=== PATIENT | male | born 1960 | race Caucasian/White ===

== ENCOUNTER 2016-11-26 17:34 | Emergency (ER) | payer OTHER ==
--- NOTE | 2016-11-26 18:07 | DIAGNOSTIC IMAGING REPORT ---
PROCEDURE: XR CHEST 1 VIEW INDICATION: LEFT SIDED CHEST PAIN SINCE YESTERDAY TECHNIQUE: Portable AP view 06:00 p.m. COMPARISON: None. FINDINGS: Lungs are clear. Heart and mediastinum are normal. Thorax is normal. IMPRESSION: 1. Negative chest.
--- NOTE | 2016-11-26 19:47 | ED NURSING NOTES ---
Clinical Report - Nurses [facility] [address] [place] [address] 11/26/2016 17:37 [id number] Triage time 17:39 Nov 26 2016. Acuity: LEVEL 2. Chief Complaint: CHEST PAIN and LEFT ARM PAIN and NECK PAIN ("feels like my shoulder is broken"). --17:45 Balaji Ewing R.N. 17:39 11/26/16. BP: 169/90. HR: 79. RR: 16. O2 saturation: 98% on room air. Temp: 98.6 F. Pain level now: 8/10. Additional comments: 8/10 pain when up and about; 5/10 when lying on stretcher. --17:45 Balaji Ewing R.N. Weight: 83.9 kg stated. Height/Length: 70 inches Per Patient. BMI: 26.5. --17:39 Balaji Ewing R.N. Medications None. --17:43 Balaji Ewing R.N. Allergies Bees. --17:44 Balaji Ewing R.N. History Arrived by private vehicle. Historian: patient. Accompanied by family. Onset. (3 days). Reports experiencing sweating episodes. He has had nausea and vomiting. 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 PAST MEDICAL HX: No history of diabetes mellitus. SOCIAL HX: Never smoker. Alcohol use; consumes beer occasionally and wine by the glass. No drug use. No infectious disease exposure. FALL RISK ASSESSMENT: Fall risk assessment completed. No fall risk identified. NUTRITIONAL RISK ASSESSMENT: The nutritional risk assessment revealed no deficiencies. FUNCTIONAL ASSESSMENT: Functional assessment: no impairments noted. LEARNING NEEDS ASSESSMENT: The learning needs assessment revealed no barriers. SKIN INTEGRITY ASSESSMENT: Skin integrity risk assessment completed. No skin integrity risk identified. --17:45 Balaji Ewing R.N. SURGERY HX: Hip prosthesis. Vasectomy. --18:04 Balaji Ewing R.N. Interventions ID band on patient. To treatment room. --17:45 Balaji Ewing R.N. PHYSICAL ASSESSMENT Ambulatory to room. GENERAL / NEURO / PSYCH: Alert. Oriented X 4. Appears in pain, anxious and in distress. RESPIRATORY: Mild respiratory distress. CVS: Pulses within normal limits. Capillary refill less than 2 seconds. EXTREMITIES: No lower extremity edema. SKIN: Skin is dry. Skin is diaphoretic. Skin is non-tender. --17:46 Balaji Ewign R.N. NURSING PROGRESS NOTES The plan of care for this patient has been created. Monitoring of patient in place. Patient gowned. Head of bed elevated. Reassurance given. Two patient identifiers checked. Side rails up x 2. Bed placed in lowest position. Patient ready for evaluation- chart flagged and ED physician notified. --17:46 Balaji Ewing R.N. 17:52 11/26/2016 Aspirin PO Tablets 325 mg given. Allergies verified and confirmed 5 rights. --17:57 Balaji Ewing R.N. 17:57 11/26/2016 Site #1 started via IV in the left antecubital space with an 20g angiocath, with aseptic technique and good blood return; one attempt. Blood drawn: rainbow set. Labeled in the presence of the patient and sent to the lab. Saline lock flushed with 10 mL saline. --17:57 Balaji Ewing R.N. 17:57 11/26/16. EKG time: (1743). EKG was performed by a tech and shown to the ED physician. --17:58 Kaycee Gallardo ( Pt given a urinal and asked to provide a sample. He is in no acute distress, son at bedside, watching TV, denies needs.). --18:23 Balaji Ewing R.N. 18:58 11/26/16. BP: 134/81. HR: 77. RR: 18. O2 saturation: 96%. Pain level now: 11/21. --18:58 Balaji Ewing R.N. 19:55 11/26/2016 Site #1 removed upon discharge. Catheter intact. Bandaid applied. --21:55 Katelynn Ryan. DISPOSITION / DISCHARGE 19:48 11/26/16. BP: 138/83. HR: 72. RR: 20. O2 saturation: 97% on room air. --19:48 Katelynn Ryan The goals identified in the patient's plan of care were met. FALL RISK ASSESSMENT: Fall risk assessment completed. No fall risk identified. --19:48 Katelynn Ryan Condition at departure: stable. No learning barriers present. Discharge instructions provided and reviewed with the patient. Patient verbalized understanding. Written instructions provided in Bulgarian. ( Follow up with Cardiology for next available appointment. Cardiology contact information provided. Return if symptoms worsen.). The patient was discharged by the physician. He was discharged home and accompanied by flat clothier. He left the Emergency Department ambulatory and via private vehicle. Patient driving. --21:54 Katelynn Ryan 19:51 11/26/16. Temp: 98.4 F (oral). Pain level now: 11/21. --21:54 Katelynn Ryan. Locked/Released at 11/26/2016 21:55 by Katelynn Ryan,
--- NOTE | 2016-11-26 19:47 | ED NURSING NOTES ---
Clinical Report - Nurses [facility] [address] [place] [address] 11/26/2016 17:37 [id number] Triage time 17:39 Nov 26 2016. Acuity: LEVEL 2. Chief Complaint: CHEST PAIN and LEFT ARM PAIN and NECK PAIN ("feels like my shoulder is broken"). --17:45 Balaji Ewing R.N. 17:39 11/26/16. BP: 169/90. HR: 79. RR: 16. O2 saturation: 98% on room air. Temp: 98.6 F. Pain level now: 8/10. Additional comments: 8/10 pain when up and about; 5/10 when lying on stretcher. --17:45 Balaji Ewing R.N. Weight: 83.9 kg stated. Height/Length: 70 inches Per Patient. BMI: 26.5. --17:39 Balaji Ewing R.N. Medications None. --17:43 Balaji Ewing R.N. Allergies Bees. --17:44 Balaji Ewing R.N. History Arrived by private vehicle. Historian: patient. Accompanied by family. Onset. (3 days). Reports experiencing sweating episodes. He has had nausea and vomiting. 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 PAST MEDICAL HX: No history of diabetes mellitus. SOCIAL HX: Never smoker. Alcohol use; consumes beer occasionally and wine by the glass. No drug use. No infectious disease exposure. FALL RISK ASSESSMENT: Fall risk assessment completed. No fall risk identified. NUTRITIONAL RISK ASSESSMENT: The nutritional risk assessment revealed no deficiencies. FUNCTIONAL ASSESSMENT: Functional assessment: no impairments noted. LEARNING NEEDS ASSESSMENT: The learning needs assessment revealed no barriers. SKIN INTEGRITY ASSESSMENT: Skin integrity risk assessment completed. No skin integrity risk identified. --17:45 Balaji Ewing R.N. SURGERY HX: Hip prosthesis. Vasectomy. --18:04 Balaji Ewing R.N. Interventions ID band on patient. To treatment room. --17:45 Balaji Ewing R.N. PHYSICAL ASSESSMENT Ambulatory to room. GENERAL / NEURO / PSYCH: Alert. Oriented X 4. Appears in pain, anxious and in distress. RESPIRATORY: Mild respiratory distress. CVS: Pulses within normal limits. Capillary refill less than 2 seconds. EXTREMITIES: No lower extremity edema. SKIN: Skin is dry. Skin is diaphoretic. Skin is non-tender. --17:46 Balaji Ewing R.N. NURSING PROGRESS NOTES The plan of care for this patient has been created. Monitoring of patient in place. Patient gowned. Head of bed elevated. Reassurance given. Two patient identifiers checked. Side rails up x 2. Bed placed in lowest position. Patient ready for evaluation- chart flagged and ED physician notified. --17:46 Balaji Ewing R.N. 17:52 11/26/2016 Aspirin PO Tablets 325 mg given. Allergies verified and confirmed 5 rights. --17:57 Balaji Ewing R.N. 17:57 11/26/2016 Site #1 started via IV in the left antecubital space with an 20g angiocath, with aseptic technique and good blood return; one attempt. Blood drawn: rainbow set. Labeled in the presence of the patient and sent to the lab. Saline lock flushed with 10 mL saline. --17:57 Balaji Ewing R.N. 17:57 11/26/16. EKG time: (1743). EKG was performed by a tech and shown to the ED physician. --17:58 Kaycee Gallardo ( Pt given a urinal and asked to provide a sample. He is in no acute distress, son at bedside, watching TV, denies needs.). --18:23 Balaji Ewing R.N. 18:58 11/26/16. BP: 134/81. HR: 77. RR: 18. O2 saturation: 96%. Pain level now: 11/21. --18:58 Balaji Ewing R.N. 19:55 11/26/2016 Site #1 removed upon discharge. Catheter intact. Bandaid applied. --21:55 Katelynn Ryan. DISPOSITION / DISCHARGE 19:48 11/26/16. BP: 138/83. HR: 72. RR: 20. O2 saturation: 97% on room air. --19:48 Katelynn Ryan The goals identified in the patient's plan of care were met. FALL RISK ASSESSMENT: Fall risk assessment completed. No fall risk identified. --19:48 Katelynn Ryan Condition at departure: stable. No learning barriers present. Discharge instructions provided and reviewed with the patient. Patient verbalized understanding. Written instructions provided in Afghan. ( Follow up with Cardiology for next available appointment. Cardiology contact information provided. Return if symptoms worsen.). The patient was discharged by the physician. He was discharged home and accompanied by automotive parts person. He left the Emergency Department ambulatory and via private vehicle. Patient driving. --21:54 Katelynn Ryan 19:51 11/26/16. Temp: 98.4 F (oral). Pain level now: 11/21. --21:54 Katelynn Ryan. Locked/Released at 11/26/2016 21:55 by Katelynn Ryan,
--- NOTE | 2016-11-26 19:47 | ED ORDER SUMMARY ---
..... Patient: BRETT LOBATO OrderSheet [facility] VisitID: [id number] [place] [address] 56y, M Registration Date/Time: 11/26/2016 ORDER SHEET Weight: 83.9 kg (stated) Allergies: Bees GENERAL ORDERS: EKG - ER Stat (17:43 11/26/2016 Eb Carrillo) (17:46 MCook R.N.) Personal Support Worker (Continuous) (17:48 11/26/2016 MCook R.N. per protocol) (17:48 MCook R.N.) Pulse oximeter (17:48 11/26/2016 MCook R.N. per protocol) (17:48 MCook R.N.) EKG - ER Stat (17:48 11/26/2016 MCook R.N. per protocol) (17:49 PAMELLAoerner) (Cancelled: Duplicate Order17:54 Eb Carrillo) Chest 1V Urgent (17:54 11/26/2016 Eb Carrillo) (Ack 17:59 Selina) (18:16 MCook R.N.) CBC w Diff Urgent (17:54 11/26/2016 Eb Carrillo) (17:55 MCook R.N.) CMP Urgent (17:54 11/26/2016 Eb Carrillo) (17:55 MCook R.N.) UA-Culture if indicated Urgent (17:54 11/26/2016 Eb Carrillo) (Ack 17:59 Selina) (19:19 HSoule) PT with INR Urgent (17:54 11/26/2016 Eb Carrillo) (17:55 MCook R.N.) Troponin-I Urgent (17:54 11/26/2016 Eb Carrillo) (17:55 MCook R.N.) D-Dimer Urgent (17:54 11/26/2016 Eb Carrillo) (17:55 MCook R.N.) Urine Drug Screen Urgent (18:22 11/26/2016 Eb Carrillo) (Ack 18:25 LNations ER Tech1) (19:19 HSoule) MEDICATION ORDERS: Aspirin PO 324 mg (NOW) (17:47 11/26/2016 MCook R.N. per protocol) (Cancelled: Duplicate Order17:56 MCook R.N.) Aspirin PO 325 mg (Do not crush or chew, NOW) (17:54 11/26/2016 Eb Carrillo) (17:57 MCook R.N.) IV FLUIDS: IV Saline Lock (17:48 11/26/2016 MCook R.N. per protocol) (17:57 MCook R.N.) ORDER SHEET NOTES: [Electronically signed by Katelynn Ryan (21:55 11/26/2016)] [Electronically signed by Aurelio June Dr. (10:47 11/30/2016)] [Electronically locked/signed by Katelynn Ryan (21:55 11/26/2016)]
--- NOTE | 2016-11-26 19:47 | ED ORDER SUMMARY ---
..... Patient: BRETT LOBATO OrderSheet [facility] VisitID: [id number] [place] [address] 56y, M Registration Date/Time: 11/26/2016 ORDER SHEET Weight: 83.9 kg (stated) Allergies: Bees GENERAL ORDERS: EKG - ER Stat (17:43 11/26/2016 Eb Carrillo) (17:46 MCook R.N.) Morning News Producer (Continuous) (17:48 11/26/2016 MCook R.N. per protocol) (17:48 MCook R.N.) Pulse oximeter (17:48 11/26/2016 MCook R.N. per protocol) (17:48 MCook R.N.) EKG - ER Stat (17:48 11/26/2016 MCook R.N. per protocol) (17:49 PAMELLAoerner) (Cancelled: Duplicate Order17:54 Eb Carrillo) Chest 1V Urgent (17:54 11/26/2016 Eb Carrillo) (Ack 17:59 Selina) (18:16 MCook R.N.) CBC w Diff Urgent (17:54 11/26/2016 Eb Carrillo) (17:55 MCook R.N.) CMP Urgent (17:54 11/26/2016 Eb Carrillo) (17:55 MCook R.N.) UA-Culture if indicated Urgent (17:54 11/26/2016 Eb Carrillo) (Ack 17:59 Selina) (19:19 HSoule) PT with INR Urgent (17:54 11/26/2016 Eb Carrillo) (17:55 MCook R.N.) Troponin-I Urgent (17:54 11/26/2016 Eb Carrillo) (17:55 MCook R.N.) D-Dimer Urgent (17:54 11/26/2016 Eb Carrillo) (17:55 MCook R.N.) Urine Drug Screen Urgent (18:22 11/26/2016 Eb Carrillo) (Ack 18:25 LNations ER Tech1) (19:19 HSoule) MEDICATION ORDERS: Aspirin PO 324 mg (NOW) (17:47 11/26/2016 MCook R.N. per protocol) (Cancelled: Duplicate Order17:56 MCook R.N.) Aspirin PO 325 mg (Do not crush or chew, NOW) (17:54 11/26/2016 Eb Carrillo) (17:57 MCook R.N.) IV FLUIDS: IV Saline Lock (17:48 11/26/2016 MCook R.N. per protocol) (17:57 MCook R.N.) ORDER SHEET NOTES: [Electronically signed by Katelynn Ryan (21:55 11/26/2016)] [Electronically signed by Aurelio June Dr. (10:47 11/30/2016)] [Electronically locked/signed by Katelynn Ryan (21:55 11/26/2016)]
--- NOTE | 2016-11-26 19:47 | ED CLINICAL REPORT ---
Clinical Report - Physicians/Mid Levels [facility] [address] [place] [address] 11/26/2016 17:37 Patient: BRETT LOBATO Arrived- By private vehicle. Historian- patient. HISTORY OF PRESENT ILLNESS Chief Complaint: CHEST PAIN. At its maximum, severity described as moderate. When seen in the E.D., severity described as moderate. Modifying factors- worsened by movement. (relieved by rest). This started 3 days ago and is still present and worsening. It was abrupt in onset and has been constant but is not gone now. The patient cannot recall the circumstances at the onset. It is described as sharp and it is described as located in the left chest area and left shoulder. No radiation. No nausea, vomiting, difficulty breathing or diaphoresis. No additional chest pain. (no recent trauma, surgeries, leg swelling, hemoptysis). Similar symptoms previously: None. REVIEW OF SYSTEMS No fever, chills, pedal edema or calf pain. All systems otherwise negative, except as recorded above. PAST HISTORY Denies the following risk factors for DVT/PE - history of DVT and pulmonary embolism, recent surgery, recent IA and congestive heart failure. Denies the following risk factors for DVT/PE - cancer, clotting disorder, estrogens, obesity and immobility. Denies the following risk factors for DVT/PE - advanced in age and vena cava filter. SOCIAL HISTORY Never smoker. No alcohol use or drug use. No recent travel. Is a local resident. FAMILY HISTORY No history of heart disease. No family history of premature onset heart disease. ADDITIONAL NOTES The nursing notes have been reviewed. PHYSICAL EXAM Vital Signs: 11/26/2016 17:39 BP: 169/90. HR: 79. RR: 16. O2 saturation: 98%. Temp: 98.6 F. Pain level now: 8/10. Oxygen saturation normal. Appearance: Alert. Oriented X3. No acute distress. Eyes: Pupils equal, round and reactive to light. Eyes normal inspection. ENT: Ears normal. Nose normal. Pharynx normal. Neck: Normal inspection. Neck supple. CVS: Normal heart rate and rhythm. Heart sounds normal. Pulses normal. (reproducible pain with palpation of the left anterior chest just above the 4th rib in the mix axillary line). Respiratory: No respiratory distress. Breath sounds normal. No rales, rhonchi or wheezes. Abdomen: Soft and nontender. Bowel sounds normal. Back: Normal external inspection. Skin: Skin warm and dry. Normal skin color. No rash. Normal skin turgor. Extremities: Extremities exhibit normal ROM. No lower extremity edema. No calf tenderness. No lower extremity edema. Neuro: Oriented X 3. No motor deficit. No sensory deficit. LABS, X-RAYS, AND EKG EKG: No acute process. No acute ischemia. Normal sinus rhythm. Rate: 80. Normal P waves. Normal CADEN. Normal QRS complex. Normal axis. Normal ST and T waves, QT and QTc. The study has been interpreted contemporaneously by me. The study has been independently viewed by me. The EKG appears to be a good tracing. Chest X-ray: No acute disease. Normal lung markings present. Normal heart size. Mediastinum normal. Great vessels normal. No infiltrate. No fracture. Views: AP (portable). The X-rays were independently viewed by me and interpreted by the radiologist. The X-rays were discussed with the radiologist (via pacs). Laboratory Tests: UA-Culture if indicated: (JAYMIE: 11/26/2016 19:05) ( MsgRcvd 11/26/2016 19:42) Final results Test Result Flag Units (Reference) URINE COLOR YELLOW URINE APPEARANCE CLEAR URINE GLUCOSE NEGATIVE (NEGATIVE) URINE BILIRUBIN NEGATIVE (NEGATIVE) URINE KETONE NEGATIVE (NEGATIVE) URINE SPECIFIC GRAVITY 1.025 (1.010-1.030) URINE PH 5.5 (5.0-8.0) URINE PROTEIN NEGATIVE (NEGATIVE) URINE UROBILINOGEN 0.2 EU/dL (0.2-1.0) URINE NITRITE NEGATIVE (NEGATIVE) URINE BLOOD NEGATIVE (NEGATIVE) URINE LEUK ESTERASE NEGATIVE (NEGATIVE) URINE RBC NONE SEEN rbc/hpf (0-1) URINE WBC NONE SEEN wbc/hpf (0-1) URINE EPITHELIAL CELLS 0-1 EPI/hpf (0-5) URINE BACTERIA NONE SEEN (NONE SEEN) URINE COMMENT CULT NOT INDICATED URINE CULTURES ARE SET-UP BASED ON THE FOLLOWING CRITERIA:POSITIVE NITRITEPOSITIVE LEUKOCYTE ESTERASEGREATER THAN 10 WHITE BLOOD CELLSMODERATE (2+) OR GREATER BACTERIA CBC w Diff: (JAYMIE: 11/26/2016 17:45) ( MsgRcvd 11/26/2016 18:02) Final results Test Result Flag Units (Reference) WHITE BLOOD COUNT 8.7 K/uL (4.5-11.5) RED BLOOD COUNT 4.92 M/uL (4.50-5.90) HEMOGLOBIN 15.5 gm/dL (13.5-17.5) HEMATOCRIT 45.2 % (41.0-53.0) MEAN CELL VOLUME 92 fL (80-100) MEAN CORPUSCULAR HGB 32 pg (26-34) MEAN CORPUSCULAR HGB CONC 34 g/dL (31-37) RED CELL DISTRIBUTION WIDTH 12.5 % (11.6-14.8) PLATELET COUNT 249 K/uL (150-400) NEUTROPHIL % 64.0 % (50-75) LYMPH % 19.9 L % (25-40) MONO % 11.0 % (3-14) EOSINOPHIL % 4.4 H % (0-4) BASOPHIL % 0.7 % (0-2) PT with INR: (JAYMIE: 11/26/2016 17:45) ( MsgRcvd 11/26/2016 18:10) Final results Test Result Flag Units (Reference) INR 0.9 (0.8-1.2) Low Intensity Therapy: INR 1.5-2.0 PT range 18.5-23.1Mod.Intensity Therapy: INR 2.0-3.0 PT range 23.1-31.5High Intensity Therapy: INR 2.5-3.5 PT range 27.4-35.5High Intensity Therapy 2: INR 3.0-4.0 PT range 31.5-39.3 D-DIMER QUANTITATIVE 0.47 ug/mLFEU (0.27-0.52) The primary value of this quantitative assay relates toits negative predictive value (i.e. exclusion) of pulmonaryembolism/deep vein thrombosis/DIC.Elevated levels of d-dimer may also occur with:, age, cancer, inflammation, liver disease,post-op, infection, hematoma, coronary disease, peripheralarteriopathy, bleeding disorders and thrombolytic treatment.Results should be correlated with other clinical andradiological data.Testing Methodology: Latex Immunoassay Urine Drug Screen: (JAYMIE: 11/26/2016 19:05) ( MsgRcvd 11/26/2016 19:50) Final results Test Result Flag Units (Reference) AMPHETAMINE/METHAMPHETAMINE NEGATIVE (NEGATIVE) BARBITURATE NEGATIVE (NEGATIVE) BENZODIAZEPINE NEGATIVE (NEGATIVE) CANNABINOID POSITIVE H (NEGATIVE) COCAINE NEGATIVE (NEGATIVE) ECSTASY NEGATIVE (NEGATIVE) METHADONE NEGATIVE (NEGATIVE) OPIATE NEGATIVE (NEGATIVE) The urine drug screen is a qualitative screening test fordrug overdose and abuse. All screen results should beconsidered as presumptive.Drugs screened for are as follows:BenzodiazepinesCocaineAmphetamines/MetamphetaminesTHC (Tetrahydrocannabinol)OpiatesBarbituratesEcstasyMethadonePositive results are unconfirmed. For confirmation, notifythe lab for the specimen to be sent to the reference lab.All confirmations must be performed by a differentmethodology.The ingestion of natural herbal and plant productscontaining Ephedra/Ephedra metabolites can produce in urineone or more substances capable of cross reacting withamphetamine/methamphetamine immunoassays. These testsprovide a preliminary result only. A more specificalternative chemical method must be used to obtain aconfirmed analytical result. CMP: (JAYMIE: 11/26/2016 17:45) ( MsgRcvd 11/26/2016 18:20) Final results Test Result Flag Units (Reference) GLUCOSE 100 mg/dL (70-110) BUN 15 mg/dL (7-18) CREATININE 1.0 mg/dL (0.6-1.3) Estimated GFR >60 mL/min Estimated GFR- >60 mL/min Note: Persistent reduction over 3 months in eGFR<60 mL/min/1.73 m2 defines CKD. Patients with eGFR values>=60 mL/min/1.73 m2 may also have CKD if evidence ofpersistent proteinuria. Additional information may be foundat www.kidney.org. SODIUM 141 mmol/L (136-145) POTASSIUM 3.9 mmol/L (3.5-5.1) CHLORIDE 103 mmol/L (98-107) CARBON DIOXIDE 28 mmol/L (21-32) CALCIUM 8.7 mg/dL (8.5-10.1) TOTAL PROTEIN 7.8 g/dL (6.4-8.2) ALBUMIN 4.2 g/dL (3.3-5.0) BILIRUBIN, TOTAL 0.4 mg/dL (0.0-1.0) ALKALINE PHOSPHATASE 70 U/L (46-116) AST (SGOT) 25 U/L (15-37) ALT (SGPT) 40 U/L (12-78) TROPONIN I <0.05 ng/mL (0.00-1.5) TROPONIN REFERENCE RANGE:<0.1 NEGATIVE0.1-1.5 INDETERMINANT>1.5 POSITIVE . PROGRESS AND PROCEDURES Course of Care: the patient is a pleasant 56-year-old male with no pertinent past medical history presenting for a vaginal left-sided chest pain. The patient appears to have a musculoskeletal type chest pain on examination. Symptoms have been occurring for the past 3 days however got worse last night. Patient is at low risk for acute myocardial infarction. Patient is also at low risk for DVT/PE but is not PERC negative. If d-dimer normal, do not feel further workup is required for pulmonary embolism at this time given the low risk. The patient will be evaluated with the troponin, EKG, andchest x-ray. We'll be looking for signs of acute myocardial infarction, pneumonia, spontaneous pneumothorax, or musculoskeletal abnormalities in the ribs. Patient is agreeable to the treatment plan. All questions have been answered. Workup does not show any acute abnormalities. In discussing with the patient, patient reports that potentially he may have had worsening of his pain is secondary to work. Patient states that he has a history of neck problems and is wondering if the symptoms could be the result of his musculoskeletal strain. Patient continues to be in no acute distress. Head discussion with patient in regards to outpatient follow-up with cardiology. Patient is a good outpatient candidate. Patient is at low risk for any acute myocardial infarction. Lab workup is otherwise noted to be unremarkable as well as EKG and chest x-ray. I discussion with patient in regards to his workup, diagnosis, home care, follow-up, and return precautions. All questions have been answered. The patient expressed understanding of these instructions and was agreeable to them. Disposition: Discharged. Condition: good. CLINICAL IMPRESSION 11/26/2016 18:58 BP: 134/81. HR: 77. RR: 18. O2 saturation: 96%. Pain level now: 10. Blood pressure normal. Oxygen saturation normal. Atypical chest pain (acute left sided). INSTRUCTIONS Warnings: GENERAL WARNINGS: Return or contact your physician immediately if your condition worsens or changes unexpectedly, if not improving as expected, or if other problems arise. SPECIFICALLY, return if you develop chest, neck, jaw, shoulder, arm, or back pain, difficulty breathing, a fluttering sensation in your chest, lightheadedness, fainting, excessive fatigue, or sudden sweating. Your Current Medications: CONTINUE TAKING THE FOLLOWING MEDICATIONS: None*. OTC Medications: Aspirin 81 mg (available over the counter): take 1 orally every 24 hours. Dispense thirty (30). No refills. Follow-up: Return to the emergency department as needed. Follow up with your doctor in three days. Reason for referral: recheck today's concerns. Summary of care provided to patient via paper. Screening today revealed the patient's blood pressure to be in the normal range. The patient should follow up with a primary care provider for blood pressure management. Understanding of the discharge instructions verbalized by patient. Follow-up with: Jero Schaefer MD, Cardiology, , [facility] - Cardiology, [address] [place] [address] Follow up in three days. Reason for referral: recheck today's concerns. Summary of care provided to patient via paper. (Electronically signed by Aurelio June Dr. 11/30/2016 10:47)
--- NOTE | 2016-11-30 10:48 | ED MAR SUMMARY ---
..... Medication Administration Record [facility] [address] [place] [address] Patient: BRETT LOBATO Visit ID: [id number] 56y, M Weight: 83.9 kg Height/Length: 70 in BMI: 26.5 ALLERGIES: Bees Given 17:52 11/26/2016 Balaji Ewing R.N. Medication Administered: ASPIRIN [PO], Dose: 325 mg Tablets PO. Medication Ordered: Aspirin PO 325 mg (Do not crush or chew, NOW).
--- NOTE | 2016-11-30 10:48 | ED MAR SUMMARY ---
..... Medication Administration Record [facility] [address] [place] [address] Patient: BRETT LOBATO Visit ID: [id number] 56y, M Weight: 83.9 kg Height/Length: 70 in BMI: 26.5 ALLERGIES: Bees Given 17:52 11/26/2016 Balaji Ewing R.N. Medication Administered: ASPIRIN [PO], Dose: 325 mg Tablets PO. Medication Ordered: Aspirin PO 325 mg (Do not crush or chew, NOW).
--- NOTE | 2016-11-30 10:48 | ED MED RECONCILIATION SUMMARY ---
Patient: BRETT LOBATO Medication Reconciliation Report [facility] VisitID: [id number] [address] [place] [address] 56y, M Registration Date/Time: 11/26/2016 Weight: 83.9 kg Height/Length: 70 in. BMI: 26.5 ALLERGIES: Bees The patient's Home Medications are listed below: NONE. The source(s) of the original Home Medication information: Not obtained. The following Medications were given to the patient in the Emergency Department: Aspirin [PO] PO 325 mg, administered: 11/26/2016 5:52:00 PM The following Medications were prescribed to the patient: Aspirin 81 mg (available over the counter): take 1 orally every 24 hours. Dispense thirty (30). No refills. -- Aurelio June Dr.
--- NOTE | 2016-11-30 10:48 | ED MED RECONCILIATION SUMMARY ---
Patient: BRETT LOBATO Medication Reconciliation Report [facility] VisitID: [id number] [address] [place] [address] 56y, M Registration Date/Time: 11/26/2016 Weight: 83.9 kg Height/Length: 70 in. BMI: 26.5 ALLERGIES: Bees The patient's Home Medications are listed below: NONE. The source(s) of the original Home Medication information: Not obtained. The following Medications were given to the patient in the Emergency Department: Aspirin [PO] PO 325 mg, administered: 11/26/2016 5:52:00 PM The following Medications were prescribed to the patient: Aspirin 81 mg (available over the counter): take 1 orally every 24 hours. Dispense thirty (30). No refills. -- Aurelio June Dr.
--- NOTE | 2016-11-30 10:48 | ED DISCHARGE INSTRUCTIONS ---
Patient: BRETT LOBATO General Instructions [facility] VisitID: [id number] [place] [address] 56y, M Registration Date/Time: 11/26/2016 11/26/2016 18:58 BP: 134/81. HR: 77. RR: 18. O2 saturation: 96%. Pain level now: 11/21. Blood pressure normal. Oxygen saturation normal. Atypical chest pain (acute left sided). INSTRUCTIONS Warnings: GENERAL WARNINGS: Return or contact your physician immediately if your condition worsens or changes unexpectedly, if not improving as expected, or if other problems arise. SPECIFICALLY, return if you develop chest, neck, jaw, shoulder, arm, or back pain, difficulty breathing, a fluttering sensation in your chest, lightheadedness, fainting, excessive fatigue, or sudden sweating. Your Current Medications: CONTINUE TAKING THE FOLLOWING MEDICATIONS: None*. OTC Medications: Aspirin 81 mg (available over the counter): take 1 orally every 24 hours. Dispense thirty (30). No refills. Follow-up: Return to the emergency department as needed. Follow up with your doctor in three days. Reason for referral: recheck today's concerns. Summary of care provided to patient via paper. Screening today revealed the patient's blood pressure to be in the normal range. The patient should follow up with a primary care provider for blood pressure management. Understanding of the discharge instructions verbalized by patient. Follow-up with: Jero Schaefer MD, Cardiology, , [facility] - Cardiology, [address] [place], [place] [id number] Follow up in three days. Reason for referral: recheck today's concerns. Summary of care provided to patient via paper. ADDITIONAL INFORMATION Chest Pain, Uncertain Cause Chest pain can happen for a number of reasons. Sometimes the cause can not be determined. If yourcondition does not seem serious, and your pain does not appear to be coming from your heart, your doctor may recommend watching it closely. Sometimes the signs of a serious problem take more time to appear. Therefore, watch for the warning signs listed below. Home care After your visit, follow these recommendations: Rest today and avoid strenuous activity. Take any prescribed medicine as directed. Follow-up care Follow up with your doctor or this facility as instructed or if you do not start to feel better within 24 hours. Call 911 Get immediate medical attention if any of the following occur: A change in the type of pain: if it feels different, becomes more severe, lasts longer, or begins to spread into your shoulder, arm, neck, jaw or back Shortness of breath or increased pain with breathing Weakness, dizziness, or fainting Rapid heart beat Get prompt medical attention Call your doctor right away if any of the following occur: Cough with dark colored sputum (phlegm) or blood Fever of 100.4F(38C) or higher, or as directed by your health care provider Swelling, pain or redness in one leg Aspirin Oral tablet What is this medicine? ASPIRIN ( pir in) is a pain reliever. It is used to treat mild pain and fever. This medicine is also used as directed by a doctor to prevent and to treat heart attacks, to prevent strokes, and to treat arthritis or inflammation. How should I use this medicine? Take this medicine by mouth with a glass of water. Follow the directions on the package or prescription label. You can take this medicine with or without food. If it upsets your stomach, take it with food. Do not take your medicine more often than directed. Talk to your machine room operator regarding the use of this medicine in children. While this drug may be prescribed for children as young as 12 years of age for selected conditions, precautions do apply. Children and teenagers should not use this medicine to treat chicken pox or flu symptoms unless directed by a doctor. Patients over 65 years old may have a stronger reaction and need a smaller dose. What side effects may I notice from receiving this medicine? Side effects that you should report to your doctor or health patient care as soon as possible: allergic reactions like skin rash, itching or hives, swelling of the face, lips, or tongue breathing problems changes in hearing, ringing in the ears confusion general ill feeling or flu-like symptoms pain on swallowing redness, blistering, peeling or loosening of the skin, including inside the mouth or nose signs and symptoms of bleeding such as bloody or black, tarry stools; red or dark-brown urine; spitting up blood or brown material that looks like coffee grounds; red spots on the skin; unusual bruising or bleeding from the eye, gums, or nose trouble passing urine or change in the amount of urine unusually weak or tired yellowing of the eyes or skin Side effects that usually do not require medical attention (report to your doctor or health patient care if they continue or are bothersome): diarrhea or constipation nausea, vomiting stomach gas, heartburn What may interact with this medicine? Do not take this medicine with any of the following medications: cidofovir ketorolac probenecid This medicine may also interact with the following medications: alcohol alendronate bismuth subsalicylate flavocoxid herbal supplements like feverfew, garlic, mac, ginkgo biloba, horse chestnut medicines for diabetes or glaucoma like acetazolamide, methazolamide medicines for gout medicines that treat or prevent blood clots like enoxaparin, heparin, ticlopidine, warfarin other aspirin and aspirin-like medicines NSAIDs, medicines for pain and inflammation, like ibuprofen or naproxen pemetrexed sulfinpyrazone varicella live vaccine What if I miss a dose? If you are taking this medicine on a regular schedule and miss a dose, take it as soon as you can. If it is almost time for your next dose, take only that dose. Do not take double or extra doses. Where should I keep my medicine? Keep out of the reach of children. Store at room temperature between 15 and 30 degrees C (59 and 86 degrees F). Protect from heat and moisture. Do not use this medicine if it has a strong vinegar smell. Throw away any unused medicine after the expiration date. What should I tell my health care provider before I take this medicine? They need to know if you have any of these conditions: anemia asthma bleeding problems child with chickenpox, the flu, or other viral infection diabetes gout if you frequently drink alcohol containing drinks kidney disease liver disease low level of vitamin K lupus smoke tobacco stomach ulcers or other problems an unusual or allergic reaction to aspirin, tartrazine dye, other medicines, dyes, or preservatives or trying to get breast-feeding What should I watch for while using this medicine? If you are treating yourself for pain, tell your doctor or health patient care if the pain lasts more than 10 days, if it gets worse, or if there is a new or different kind of pain. Tell your doctor if you see redness or swelling. Also, check with your doctor if you have a fever that lasts for more than 3 days. Only take this medicine to prevent heart attacks or blood clotting if prescribed by your doctor or health patient care. Do not take aspirin or aspirin-like medicines with this medicine. Too much aspirin can be dangerous. Always read the labels carefully. This medicine can irritate your stomach or cause bleeding problems. Do not smoke cigarettes or drink alcohol while taking this medicine. Do not lie down for 30 minutes after taking this medicine to prevent irritation to your throat. If you are scheduled for any medical or dental procedure, tell your healthcare provider that you are taking this medicine. You may need to stop taking this medicine before the procedure. You have been given the following additional information: Chest Pain, Uncertain Cause Aspirin Oral tablet (Electronically signed by Aurelio June Dr. 11/30/2016 10:47)
--- NOTE | 2016-11-30 10:48 | ED DISCHARGE INSTRUCTIONS ---
Patient: BRETT LOBATO General Instructions [facility] VisitID: [id number] [place] [address] 56y, M Registration Date/Time: 11/26/2016 11/26/2016 18:58 BP: 134/81. HR: 77. RR: 18. O2 saturation: 96%. Pain level now: 11/21. Blood pressure normal. Oxygen saturation normal. Atypical chest pain (acute left sided). INSTRUCTIONS Warnings: GENERAL WARNINGS: Return or contact your physician immediately if your condition worsens or changes unexpectedly, if not improving as expected, or if other problems arise. SPECIFICALLY, return if you develop chest, neck, jaw, shoulder, arm, or back pain, difficulty breathing, a fluttering sensation in your chest, lightheadedness, fainting, excessive fatigue, or sudden sweating. Your Current Medications: CONTINUE TAKING THE FOLLOWING MEDICATIONS: None*. OTC Medications: Aspirin 81 mg (available over the counter): take 1 orally every 24 hours. Dispense thirty (30). No refills. Follow-up: Return to the emergency department as needed. Follow up with your doctor in three days. Reason for referral: recheck today's concerns. Summary of care provided to patient via paper. Screening today revealed the patient's blood pressure to be in the normal range. The patient should follow up with a primary care provider for blood pressure management. Understanding of the discharge instructions verbalized by patient. Follow-up with: Jero Schaefer MD, Cardiology, , [facility] - Cardiology, [address] [place], [place] [id number] Follow up in three days. Reason for referral: recheck today's concerns. Summary of care provided to patient via paper. ADDITIONAL INFORMATION Chest Pain, Uncertain Cause Chest pain can happen for a number of reasons. Sometimes the cause can not be determined. If yourcondition does not seem serious, and your pain does not appear to be coming from your heart, your doctor may recommend watching it closely. Sometimes the signs of a serious problem take more time to appear. Therefore, watch for the warning signs listed below. Home care After your visit, follow these recommendations: Rest today and avoid strenuous activity. Take any prescribed medicine as directed. Follow-up care Follow up with your doctor or this facility as instructed or if you do not start to feel better within 24 hours. Call 911 Get immediate medical attention if any of the following occur: A change in the type of pain: if it feels different, becomes more severe, lasts longer, or begins to spread into your shoulder, arm, neck, jaw or back Shortness of breath or increased pain with breathing Weakness, dizziness, or fainting Rapid heart beat Get prompt medical attention Call your doctor right away if any of the following occur: Cough with dark colored sputum (phlegm) or blood Fever of 100.4F(38C) or higher, or as directed by your health care provider Swelling, pain or redness in one leg Aspirin Oral tablet What is this medicine? ASPIRIN ( pir in) is a pain reliever. It is used to treat mild pain and fever. This medicine is also used as directed by a doctor to prevent and to treat heart attacks, to prevent strokes, and to treat arthritis or inflammation. How should I use this medicine? Take this medicine by mouth with a glass of water. Follow the directions on the package or prescription label. You can take this medicine with or without food. If it upsets your stomach, take it with food. Do not take your medicine more often than directed. Talk to your pension administrator regarding the use of this medicine in children. While this drug may be prescribed for children as young as 12 years of age for selected conditions, precautions do apply. Children and teenagers should not use this medicine to treat chicken pox or flu symptoms unless directed by a doctor. Patients over 65 years old may have a stronger reaction and need a smaller dose. What side effects may I notice from receiving this medicine? Side effects that you should report to your doctor or health wound care rn as soon as possible: allergic reactions like skin rash, itching or hives, swelling of the face, lips, or tongue breathing problems changes in hearing, ringing in the ears confusion general ill feeling or flu-like symptoms pain on swallowing redness, blistering, peeling or loosening of the skin, including inside the mouth or nose signs and symptoms of bleeding such as bloody or black, tarry stools; red or dark-brown urine; spitting up blood or brown material that looks like coffee grounds; red spots on the skin; unusual bruising or bleeding from the eye, gums, or nose trouble passing urine or change in the amount of urine unusually weak or tired yellowing of the eyes or skin Side effects that usually do not require medical attention (report to your doctor or health wound care rn if they continue or are bothersome): diarrhea or constipation nausea, vomiting stomach gas, heartburn What may interact with this medicine? Do not take this medicine with any of the following medications: cidofovir ketorolac probenecid This medicine may also interact with the following medications: alcohol alendronate bismuth subsalicylate flavocoxid herbal supplements like feverfew, garlic, mac, ginkgo biloba, horse chestnut medicines for diabetes or glaucoma like acetazolamide, methazolamide medicines for gout medicines that treat or prevent blood clots like enoxaparin, heparin, ticlopidine, warfarin other aspirin and aspirin-like medicines NSAIDs, medicines for pain and inflammation, like ibuprofen or naproxen pemetrexed sulfinpyrazone varicella live vaccine What if I miss a dose? If you are taking this medicine on a regular schedule and miss a dose, take it as soon as you can. If it is almost time for your next dose, take only that dose. Do not take double or extra doses. Where should I keep my medicine? Keep out of the reach of children. Store at room temperature between 15 and 30 degrees C (59 and 86 degrees F). Protect from heat and moisture. Do not use this medicine if it has a strong vinegar smell. Throw away any unused medicine after the expiration date. What should I tell my health care provider before I take this medicine? They need to know if you have any of these conditions: anemia asthma bleeding problems child with chickenpox, the flu, or other viral infection diabetes gout if you frequently drink alcohol containing drinks kidney disease liver disease low level of vitamin K lupus smoke tobacco stomach ulcers or other problems an unusual or allergic reaction to aspirin, tartrazine dye, other medicines, dyes, or preservatives or trying to get breast-feeding What should I watch for while using this medicine? If you are treating yourself for pain, tell your doctor or health wound care rn if the pain lasts more than 10 days, if it gets worse, or if there is a new or different kind of pain. Tell your doctor if you see redness or swelling. Also, check with your doctor if you have a fever that lasts for more than 3 days. Only take this medicine to prevent heart attacks or blood clotting if prescribed by your doctor or health wound care rn. Do not take aspirin or aspirin-like medicines with this medicine. Too much aspirin can be dangerous. Always read the labels carefully. This medicine can irritate your stomach or cause bleeding problems. Do not smoke cigarettes or drink alcohol while taking this medicine. Do not lie down for 30 minutes after taking this medicine to prevent irritation to your throat. If you are scheduled for any medical or dental procedure, tell your healthcare provider that you are taking this medicine. You may need to stop taking this medicine before the procedure. You have been given the following additional information: Chest Pain, Uncertain Cause Aspirin Oral tablet (Electronically signed by Aurelio June Dr. 11/30/2016 10:47)
== END 2016-11-26 19:55 ==
LOC: ED SRH 17:34
DX: R07.89 Other chest pain (principal)
CPT/HCPCS: 90004; 90100; 90616; 91556; 92760; 92761; 92762; 92763; 92764; 92765; 92766; 92767; 94060; 95059